=== PATIENT | female | born 1955 | race Caucasian/White ===

== ENCOUNTER 2017-10-17 08:27 | Emergency (ER) | payer OTHER ==
[2017-10-17 08:55] VITALS: BP 119/72
[2017-10-17] MEDS ORDERED: Meclizine TAB* 12.5 MG PO ONE (08:59)
[2017-10-17] MEDS ORDERED: Ondansetron TAB* 4 MG PO ONE (08:59)
--- NOTE | 2017-10-17 09:16 | UC ---
Dizzy HPI HPI Summary: Patient is 61 y/o F c/o episodes of dizziness onset approx 0400 but have since resolved. She states Sx prevented her from sleeping. Episodes increased in length and intensity by ~0500 sparking her visit to . Dizziness described as "the room was spinning". Alleviating factors: Sitting up at 45 degree angle. Aggravating factors: Laying supine. Patient received instructions from her daughter (AMBIKA) with attempt to alleviate Sx. She performed these actions which improved Sx. Patiet states that she visited the beach recently in which she dipped her head under water. PMHx: hypotension. Patient is on Enablex and beta blockers for incontinence. - History Of Current Complaint Chief Complaint: UCDizziness Stated Complaint: DIZZY Time Seen by Provider: 10/17/17 08:32 Hx Obtained From: Patient Hx Last Menstrual Period: menapause Onset/Duration: Sudden Onset, Lasting Hours Timing: Intermittent Episode Lasting Severity Currently: None Pain Intensity: 0 Pain Scale Used: 0-10 Numeric Character: Room Spinning Aggravating Factor(s): Position Change Associated Signs And Symptoms: Positive: Nausea, Vomiting - Allergies/Home Medications Allergies/Adverse Reactions: Allergies Allergy/AdvReac Type Severity Reaction Status Date / Time No Known Allergies Allergy Verified 03/21/15 15:33 PMH/Surg Hx/FS Hx/Imm Hx Previously Healthy: No Cardiovascular History: Hypertension - Surgical History Surgical History: Yes Surgery Procedure, Year, and Place: LEFT BREAST DUCT REMOVED, LEFT MENISCUS REPAIR - Family History Known Family History: Positive: Diabetes, Other - Pos: HLD, hypotension - Social History Occupation: Employed Full-time Lives: With Family Alcohol Use: Occasionally Substance Use Type: None Smoking Status (MU): Never Smoked Tobacco Have You Smoked in the Last Year: No - Immunization History Most Recent Tetanus Shot: unsure Review of Systems ENT: Other - Neg: Ear pain Respiratory: Other - Neg: SOB Gastrointestinal: Vomiting - 5x, Nausea Neurological: Other - Neg: CID, blurred vision All Other Systems Reviewed And Are Negative: Yes Physical Exam - Summary Physical Exam Summary: VITAL SIGNS: Reviewed. GENERAL: Patient is a well-developed and nourished female who is lying comfortable in the stretcher. Patient is not in any acute respiratory distress. HEAD AND FACE: Normocephalic EYES: No nystagmus EARS: Hearing grossly intact. MOUTH: Oropharynx within normal limits. NECK: Supple, trachea is midline, no adenopathy, no JVD, no carotid bruit. CHEST: Symmetric, no tenderness at palpation LUNGS: Clear to auscultation bilaterally. No wheezing or crackles. CVS: Regular rate and rhythm, S1 and S2 present, no murmurs or gallops appreciated. ABDOMEN: Soft, non-tender. Bowel sounds are normal. No abdominal abnormal pulsations. EXTREMITIES: Full ROM in all major joints, no edema, no cyanosis or clubbing. No LE weakness. NEURO: Alert and oriented x 3. No acute neurological deficits. Speech is normal and follows commands. SKIN: Dry and warm Triage Information Reviewed: Yes Vital Signs: Initial Vital Signs Temp 97.4 F 10/17/17 08:38 Pulse 71 10/17/17 08:38 Resp 18 10/17/17 08:38 BP 114/69 10/17/17 08:38 Pulse Ox 98 10/17/17 08:38 Vital Signs Reviewed: Yes Diagnostics - Radiology Brain CT Xray Interpretation: No Acute Changes - IMPRESSION: NO ACUTE INTRACRANIAL PATHOLOGY. Report has been reviewed by provider. Radiology Interpretation Completed By: Radiologist - EKG EKG Comments: Taken at 0835 Cardiac Rate: NL - 72bpm Cardiac Rhythm: Sinus: Normal - 72bpm, Q wave in III ST Segment: Normal Re-Evaluation - Re-Evaluation First Eval Re-Evaluation Time: 09:45 Change: Improved Comment: Discussed CT results with pt. Meds have improved symptoms. Ambulation challanged patient, she had no dizziness. Dizzy Course/Dx - Course Course Of Treatment: 61-year-old female here complaining of dizziness. The patient reports that she has room is spinning. The symptoms gets worse when she gets up from bed and it gets better when she lays down. She also reports that she gets better when she closes her eyes. In the physical exam the patient is neurological intact and she has no acute focal neurological deficits. She has no nystagmus. EKG normal sinus rhythm without any ST elevations. Head CT impression by radiology shows no acute pathology. I the patient was given meclizine and Zofran as his symptoms have improved. I ambulate her myself in the room and the patient had a good steady walk. She denies any dizziness or nausea or vomiting. Therefore, I believe that the patient has an acute episode of vertigo. However, we discussed the the differential diagnosis such as posterior stroke, arrhythmias. She understands and agrees. Patient was offered to send her to the emergency department for further assessment however she declines his the patient is feeling better. She understands that she will have to go to the ER if the symptoms return or get worse. She understands and agrees. The patient hasn't also agrees. - Differential Dx/Diagnosis Differential Diagnosis/HQI/PQRI: Benign Paroxysmal Positional Vertigo, CVA, Dysrhythmia, Meniere's Disease, Medication Reaction, Myocardial Infarction, Transient Ischemic Attack, Vasovagal Reaction Provider Diagnoses: Acute Vertigo Discharge - Sign-Out/Discharge Documenting (check all that apply): Patient Departure - Discharge Plan Condition: Stable Disposition: HOME Prescriptions: Meclizine TAB* [Antivert 12.5 TAB*] 25 mg PO TID #30 tab Ondansetron ODT TAB* [Zofran 4 MG Odt TAB*] 4 mg PO Q6H PRN #10 tab.odt PRN Reason: Vomiting Patient Education Materials: Vertigo (ED) Referrals: Kevin Martinez MD [Primary Care Provider] - Additional Instructions: Take medications as instructed Increase your fluid intake Return to the UC if symptoms worsen
[2017-10-17] MEDS ORDERED: Ondansetron ODT TAB* 4 MG PO ONE (09:24)
--- NOTE | 2017-10-17 09:41 | RAD ---
HISTORY: Dizziness COMPARISONS: None TECHNIQUE: Multiple contiguous axial CT scans were obtained of the head without intravenous contrast. FINDINGS: HEMORRHAGE/INFARCT: There is no hemorrhage or acute infarct. MASSES/SHIFT: There is no mass or shift. EXTRA-AXIAL SPACES: There are no extra-axial fluid collections. SULCI AND VENTRICLES: The sulci and ventricles are normal in size and position for the patient's stated age. CEREBRUM: There are no focal parenchymal abnormalities. BRAINSTEM: There are no focal parenchymal abnormalities. CEREBELLUM: There are no focal parenchymal abnormalities. VESSELS: The vessels are grossly normal. PARANASAL SINUSES: The paranasal sinuses are clear. ORBITS: The orbits are unremarkable. BONES AND SOFT TISSUE: No bone or soft tissue abnormalities are noted. OTHER: None IMPRESSION: NO ACUTE INTRACRANIAL PATHOLOGY.
== END 2017-10-17 10:03 | disposition home or self-care (01) ==
LOC: UCEAST 08:27
DX: R42 Dizziness and giddiness (principal); R11.2 Nausea with vomiting, unspecified; I10 Essential (primary) hypertension; Z83.3 Family history of diabetes mellitus; Z82.49 Family history of ischemic heart disease and other diseases of the circulatory system; Z83.49 Family history of other endocrine, nutritional and metabolic diseases
CPT/HCPCS: 70450; 93005; 99213; A9270-GY; G0463

== ENCOUNTER 2018-11-05 06:04 | Emergency (ER) | payer OTHER ==
[2018-11-05] MEDS ORDERED: NS 0.9% 1000 ML** 1,000 ML IV ONE (06:31)
--- NOTE | 2018-11-05 06:32 | ED ---
Back Pain - HPI Summary HPI Summary: Pt. is a 62 y.o female who presents to the ER for acute right sided back pain. Pt. states she just got back from visiting her daughter and lifted her suitcase and noticed mild right sided back pain. Pt. states pain progressed through the night with vomiting today. Pt. denies radicular pain into legs, numbness, tingling, or weakness. Denies cough, CP, SOB. Pt. denies past medical hx. Does not she passed a kidney stone years ago. Sxs are moderate in severity. Pt. states she took a lortab and motrin [employer]. - History of Current Complaint Chief Complaint: EDBackInjuryPain Stated Complaint: BACK PAIN PER EMS Time Seen by Provider: 11/05/18 06:11 Hx Obtained From: Patient Hx Last Menstrual Period: menapause Pain Intensity: 2 - Allergies/Home Medications Allergies/Adverse Reactions: Allergies Allergy/AdvReac Type Severity Reaction Status Date / Time No Known Allergies Allergy Verified 03/21/15 15:33 PMH/Surg Hx/FS Hx/Imm Hx Previously Healthy: Yes - Cancer History Hx Chemotherapy: No Hx Radiation Therapy: No - Surgical History Surgery Procedure, Year, and Place: LEFT BREAST DUCT REMOVED, LEFT MENISCUS REPAIR - Immunization History Immunizations Up to Date: Yes Infectious Disease History: No Infectious Disease History: Denies: Traveled Outside the [place] in Last 30 Days - Family History Known Family History: Positive: Diabetes, Other - Pos: HLD, hypotension, Non- Contributory - Social History Occupation: Retired Lives: With Family Alcohol Use: Occasionally Substance Use Type: Reports: None Smoking Status (MU): Never Smoked Tobacco Have You Smoked in the Last Year: No Review of Systems Constitutional: Negative Negative: Fever, Chills Cardiovascular: Negative Negative: Chest Pain Respiratory: Negative Negative: Shortness Of Breath Positive: Abdominal Pain, Vomiting, Nausea Positive: flank pain Musculoskeletal: Negative Neurological: Negative Negative: Weakness, Paresthesia, Numbness All Other Systems Reviewed And Are Negative: Yes Physical Exam Triage Information Reviewed: Yes Vital Signs On Initial Exam: Initial Vitals Temp Pulse Resp BP Pulse Ox 97.6 F 70 18 125/80 99 11/05/18 06:08 11/05/18 06:08 11/05/18 06:08 11/05/18 06:08 11/05/18 06:08 Vital Signs Reviewed: Yes Appearance: Positive: Well-Appearing - Pt. lying in bed in NAD. Pleasant. present. Skin: Positive: Warm, Dry Head/Face: Positive: Normal Head/Face Inspection Eyes: Positive: Normal, EOMI Neck: Positive: Supple Respiratory/Lung Sounds: Positive: Clear to Auscultation, Breath Sounds Present Cardiovascular: Positive: Normal, RRR Abdomen Description: Positive: Nontender, Soft, Other: - mild right flank tenderness Musculoskeletal: Positive: Normal, Strength/ROM Intact - 5/5 strength bilaterally. Negative straight leg test bilaterally. Neurological: Positive: Normal, CN Intact II-III Psychiatric: Positive: Affect/Mood Appropriate Diagnostics - Vital Signs Vital Signs Temp Pulse Resp BP Pulse Ox 11/05/18 06:08 97.6 F 70 18 125/80 99 - Laboratory Result Diagrams: 11/05/18 06:46 11/05/18 06:46 Lab Statement: Any lab studies that have been ordered have been reviewed, and results considered in the medical decision making process. Back Pain Course/Dx - Course Course Of Treatment: Patient presenting with acute onset right flank pain. She is afebrile with stable vital signs. Patient took pain medication prior to arrival and pain has greatly improved and she is resting comfortably. She is no radicular symptoms and suspect pain secondary to ureterolithiasis. Blood work is unremarkable. Urinalysis shows RBCs without signs of infection. Patient remainder of IV fluids. CT per radiology: IMPRESSION: 1. A 5 MM DEPENDENT CALCULUS IS SEEN WITHIN THE URINARY BLADDER. A PROBABLE SECOND 5 MM. URETERAL CALCULUS IS SEEN NEAR THE RIGHT UVJ (SEVERAL NEARBY PHLEBOLITHS). 2. THERE IS RIGHT-SIDED HYDRONEPHROSIS WITH AN EDEMATOUS RIGHT KIDNEY. NO PERIRENAL. STRANDING OR FLUID COLLECTION. 3. A PARTIALLY CALCIFIED UTERINE LEIOMYOMA POSTEROLATERALLY DEVIATES THE DISTAL RIGHT. URETER. On re- examination patient is resting comfortably and pain is minimal. Results were discussed. Patient notes she has hydrocodone at home from a prior encounter. Zofran and flomax rx. Will fu. with urology if pain persist. To increase fluids. To return to ER for uncontrolled pain, fever, vomiting, or if concerned. Pt. understands and agrees with plan. - Diagnoses Differential Diagnosis/HQI/PQRI: Positive: Herniated Disc, Renal Colic, Strain, Sprain Provider Diagnoses: Urolithiasis Discharge - Sign-Out/Discharge Documenting (check all that apply): Patient Departure Patient Received Moderate/Deep Sedation with Procedure: No - Discharge Plan Condition: Improved Disposition: HOME Prescriptions: Ondansetron TAB* [Zofran 4 MG Tab*] 4 mg PO Q6H PRN #12 tab PRN Reason: Nausea Tamsulosin CAP* [Flomax CAP*] 0.4 mg PO DAILY #5 cap Patient Education Materials: Kidney Stones (ED) Referrals: Kevin Martinez MD [Primary Care Provider] - Narendra Pichardo MD [Medical Doctor] - Additional Instructions: Follow up with urology within one week if pain persist Take home hydrocodone as directed Take ibuprofen 600mg-800mg every 8 hours Increase fluids Strain urine Return to ER for uncontrollable pain, vomiting, fever, or if concerned - Billing Disposition and Condition Condition: IMPROVED Disposition: Home
[2018-11-05 06:53] LABS: ABS Lymphocytes 1.1 10^3/ul (1.0-4.8); ABS Monocytes 0.5 10^3/ul (0-0.8); ABS Neutrophils 7.8 10^3/ul (1.5-7.7); Eosinophil % 0.3 %; Hematocrit 35 % (35-47); Hemoglobin 12.1 g/dL (12.0-16.0); Lymphocyte % 11.7 %; Mean Corpuscular HGB Conc 34 g/dL (31-36); Mean Corpuscular Hemoglobin 31 pg (27-31); Mean Corpuscular Volume 92 fL (80-97); Mean Platelet Volume 8.8 fL (7.4-10.4); Platelet Count 219 10^3/uL (150-450); Red Blood Count 3.85 10^6 /uL (3.70-4.87); Red Cell Distribution Width 14 % (10-15); White Blood Count 9.4 10^3/uL (3.5-10.8)
[2018-11-05 07:06] LABS: Urine Appearance Cloudy; Urine Bacteria Absent (Absent); Urine Bilirubin Negative (Negative); Urine Blood 3+ (Negative); Urine Color Yellow; Urine Glucose Negative (Negative); Urine Ketones 1+ (Negative); Urine Nitrite Negative (Negative); Urine Protein 1+(30 mg/dL) (Negative); Urine Red Blood Cell 3+(>10/hpf) (Absent); Urine Specific Gravity 1.024 (1.010-1.030); Urine Squamous Epithelial Cell Present (Absent); Urine Urobilinogen Negative (Negative); Urine White Blood Cell Trace(0-5/hpf) (Absent)
[2018-11-05 07:17] LABS: Albumin 4.4 g/dL (3.2-5.2); Albumin/Globulin Ratio 1.8 (1-3); Calcium 9.9 mg/dL (8.6-10.3); EGFR African American 146.9 (>60); EGFR Non-African American 121.4 (>60); Globulin 2.4 g/dL (2-4); Potassium 3.8 mmol/L (3.5-5.0); Total Bilirubin 0.5 mg/dL (0.2-1.0); Total Protein 6.8 g/dL (6.4-8.9)
[2018-11-05 08:45] VITALS: BP 107/69
== END 2018-11-05 08:44 | disposition home or self-care (01) ==
LOC: ED 06:04
DX: N13.2 Hydronephrosis with renal and ureteral calculous obstruction (principal)
CPT/HCPCS: 36415; 74176; 80053; 81003; 81015; 85025; 87086; 96360; 96361; 99283

== ENCOUNTER 2020-06-09 17:42 | Observation (INO) ==
[2020-06-09 19:52] LABS: ABS Eosinophils 0.1 10^3/ul (0-0.6); ABS Lymphocytes 2.7 10^3/ul (1.0-4.8); ABS Monocytes 0.6 10^3/ul (0-0.8); ABS Neutrophils 4.5 10^3/ul (1.5-7.7); Eosinophil % 0.9 %; Hematocrit 37 % (35-47); Hemoglobin 12.5 g/dL (12.0-16.0); Lymphocyte % 34.3 %; Mean Corpuscular HGB Conc 33 g/dL (31-36); Mean Corpuscular Hemoglobin 32 pg (27-31); Mean Corpuscular Volume 95 fL (80-97); Mean Platelet Volume 8.3 fL (7.4-10.4); Platelet Count 282 10^3/uL (150-450); Red Blood Count 3.94 10^6 /uL (3.70-4.87); Red Cell Distribution Width 14 % (10-15); White Blood Count 7.9 10^3/uL (3.5-10.8)
[2020-06-09 20:11] LABS: ALT 16 U/L (7-52); AST 16 U/L (13-39); Albumin 4.4 g/dL (3.2-5.2); Albumin/Globulin Ratio 1.5 (1-3); Alkaline Phosphatase 69 U/L (34-104); Anion Gap 5 mmol/L (2-11); Blood Urea Nitrogen 20 mg/dL (6-24); CO2 Carbon Dioxide 26 mmol/L (22-32); Calcium 10.2 mg/dL (8.6-10.3); Chloride 107 mmol/L (101-111); EGFR African American 136.7 (>60); Globulin 2.9 g/dL (2-4); Glucose 89 mg/dL (70-100); Potassium 4.2 mmol/L (3.5-5.0); Sodium 138 mmol/L (135-145); Total Protein 7.3 g/dL (6.4-8.9)
[2020-06-09 20:16] LABS: Troponin I 0.05 ng/mL (<0.03)
[2020-06-09 21:55] LABS: Troponin I 0.04 ng/mL (<0.03)
[2020-06-09] MEDS ORDERED: Heparin DRIP 25,000 UNITS BAG 25,000 UNITS/500 ML BAG IV SCH (22:30)
[2020-06-09 22:53] LABS: Blood Urea Nitrogen 21 mg/dL (6-24); EGFR Non-African American 120.7 (>60)
[2020-06-09 22:55] LABS: Activated Partial Thrombo Time 31.7 seconds (26.0-38.0)
[2020-06-09] MEDS ORDERED: Heparin 5000 UNITS/ML 1 mL VIAL IV SCH (23:00)
[2020-06-10 00:41] LABS: Troponin I 0.04 ng/mL (<0.03)
[2020-06-10 04:48] LABS: ABS Eosinophils 0.1 10^3/ul (0-0.6); ABS Lymphocytes 2.8 10^3/ul (1.0-4.8); ABS Monocytes 0.6 10^3/ul (0-0.8); ABS Neutrophils 3.7 10^3/ul (1.5-7.7); Eosinophil % 1.4 %; Hematocrit 34 % (35-47); Hemoglobin 11.4 g/dL (12.0-16.0); Lymphocyte % 38.7 %; Mean Corpuscular HGB Conc 33 g/dL (31-36); Mean Corpuscular Hemoglobin 31 pg (27-31); Mean Corpuscular Volume 94 fL (80-97); Mean Platelet Volume 8.1 fL (7.4-10.4); Platelet Count 264 10^3/uL (150-450); Red Blood Count 3.63 10^6 /uL (3.70-4.87); Red Cell Distribution Width 14 % (10-15); White Blood Count 7.2 10^3/uL (3.5-10.8)
[2020-06-10 05:05] LABS: Cholesterol 166 mg/dL; HDL Cholesterol 57.3 mg/dL; LDL Cholesterol 96 mg/dL; Triglycerides 66 mg/dL
[2020-06-10 05:09] LABS: Troponin I 0.03 ng/mL (<0.03)
[2020-06-10] MEDS ORDERED: CMCS:Darifenacin 15 mg ER TAB (NF) PO SCH (09:00)
[2020-06-10] MEDS ORDERED: Aspirin EC 81 mg TAB.EC (enteric coated) PO SCH (09:00)
[2020-06-10] MEDS ORDERED: Mirabegron 50 mg ER TAB (NF) PO SCH (09:00)
[2020-06-10 11:40] VITALS: BP 92/65
== END 2020-06-10 15:50 | disposition home or self-care (01) ==
LOC: MEDTELE 17:42 → ED 17:42 → MEDTELE 21:34
PROVIDERS: ADMIT Internal Medicine; ATTEND Internal Medicine